=== PATIENT | male | born 1995 | race Caucasian/White ===

== ENCOUNTER 2023-03-16 16:12 | Emergency (ER) | payer SELFPAY ==
[2023-03-16 16:20] VITALS: BP 134/90; PULSE 89; RESP 14; TEMP 36.5; O2SAT 99
--- NOTE | 2023-03-16 16:36 | ED.SKABFB ---
HPI - Skin/Abscess/Foreign Bdy General Chief complaint: Skin/Abscess/Foreign Body Stated complaint: Rash/Pain Source: patient Mode of arrival: ambulatory Limitations: no limitations History of Present Illness HPI narrative: 27 y/o male presented for c/o pain intermittently over the last 2 months to left back/ribs/abdomen since diagnosed with shingles in December. Completed steroid and valacyclovir as prescribed by ER in [place]. Patient reports concern the shingles is returning. States at night he feels itching and burning to the sites. Patient states the pain is mild. Related Data Allergies Allergy/AdvReac Type Severity Reaction Status Date / Time No Known Allergies Allergy Verified 03/16/23 16:21 Review of Systems Review of Systems: CONSTITUTIONAL: Denies body aches, fever, chills, or sweats. EYES: Denies visual changes, redness, or discharge. ENT: Denies rhinorrhea, congestion CARDIOVASCULAR: Denies chest pain, palpitations, or edema. RESPIRATORY: Denies cough or dyspnea. GASTROINTESTINAL: Denies abdominal pain, nausea, vomiting, or diarrhea. SKIN: Reports scattered pimples to chest. Reports red areas to left back, ribs and chest from recent shingles. MUSCULOSKELETAL: Denies back pain, joint pain, or myalgia. NEUROLOGIC: Denies headache, numbness, tingling, or weakness. [facility] Past Medical History Medical History (Updated 03/16/23 @ 17:07 by Christi Tamez, KEVEN) No pertinent past medical history Comments At time of signature, I have reviewed and agree with nursing past medical, surgical, social and family history unless otherwise noted. Please see nursing chart for further information. There is no relevant family history pertinent to the presenting complaint Exam Narrative: GENERAL: Well-appearing HEAD: Normocephalic, atraumatic. EYES: conjunctivae clear, and EOMI. ENT: Mucous membranes moist. Oropharynx without edema, erythema or lesions. NECK: Supple. No lymphadenopathy CHEST: Clear to auscultation. HEART: Regular rate and rhythm. SKIN: Warm, dry. Left abdomen, side and posterior healing scars c/w healing zoster. No vesicles or draining lesions. NEURO: Alert and oriented x3. Course Course Emergency Course: Patient is aware of diagnosis, understands and agrees to treatment plan. Anticipatory guidance given. Patient agrees to follow-up as directed and is aware of reasons to seek care at the emergency department. Portions of this record may have been created with voice recognition software Level of Care: Express Care Visit Vital Signs Vital signs: Reviewed MDM - Skin/Abscess/Foreign Bdy MDM Narrative Medical decision making narrative: Discussed physical exam findings c/w PHN, however pt appears resistant to this information. Continued to request something 'to heal the area' and kill the virus. Denied significant pain, declined steroid. No vesicles or draining lesions to indicate active shingles, No indication for valacylovir at this time. Attempted to provide education on PHN however he states the visit was a waste of time. Advised supportive measures and signs/symptoms to go to the ER. Pt is appropriate for outpt treatment and f/u. Differential Diagnosis Differential diagnosis: Likely abscess of skin or subcutaneous tissue, viral exanthem, urticaria, herpes zoster (post herpetic neuralgia), cellulitis and contact dermatitis Discharge Plan Discharge Clinical Impression: Post herpetic neuralgia Patient Disposition: Home, Self-Care Condition: Stable Instructions: Shingles (ED) Additional Instructions: ?Postherpetic neuralgia (PHN) can last for?weeks, months, or in some people, years after the shingles rash goes away. In most people, shingles pain goes away in one to three months.? For shingles nerve pain: Tylenol 1000mg every 8 hours as needed Lidocaine or capsaicin cream as needed to the sites Follow up with your primary care provider Go to the ER for worseni
== END 2023-03-16 16:56 | disposition home or self-care (01) ==
PROVIDERS: Emergency Provider Nurse Practitioner Family
DX: B02.29 Other postherpetic nervous system involvement (principal)
CPT/HCPCS: 99213; G0463